=== PATIENT | male | born 1955 | race Caucasian/White ===

== ENCOUNTER 2020-08-30 20:00 | Emergency (ER) | payer OTHER, MEDICARE ==
[~2020-08-30] VITALS: Ht 172.7 cm; Wt 117.9 kg
[2020-08-30] MEDS ORDERED: ARTHRITIS MED (20:10)
[2020-08-30] MEDS ORDERED: CHOL MED PO (20:10)
[2020-08-30 21:11] LABS: HEMATOCRIT 45.8 % (42.0-52.0); HEMOGLOBIN 16.2 gm/dL (14.0-18.0); MCH 31.9 pg (26.0-34.0); MCHC 35.4 g/dL (28.0-37.0); MCV 90.1 fL (80.0-100.0); MPV 6.6 fl. (7.2-11.1); RBC 5.08 mil/uL (4.50-6.00); WBC 7.8 thou/uL (4.0-11.0)
[2020-08-30 21:18] LABS: CALCIUM 8.2 mg/dL (8.5-10.1); CREATININE 0.9 mg/dL (0.6-1.3); POTASSIUM 3.4 mmol/L (3.5-5.1)
[2020-08-30 21:23] LABS: ALBUMIN 3.7 g/dL (3.4-5.0); TOTAL BILIRUBIN 0.6 mg/dL (<0.1-1.0); TOTAL PROTEIN 7.4 g/dL (6.4-8.2)
[2020-08-30 22:26] LABS: URINE BILIRUBIN NEGATIVE (Negative); URINE BLOOD TRACE (Negative); URINE CLARITY CLEAR; URINE COLOR YELLOW; URINE GLUCOSE-RANDOM NEGATIVE (Negative); URINE KETONES NEGATIVE (Negative); URINE LEUKOCYTES-REFLEX NEGATIVE (Negative); URINE NITRITE-REFLEX NEGATIVE (Negative); URINE PROTEIN NEGATIVE (Negative)
[2020-08-30 22:34] LABS: AMP/METHAMP Negative (Negative); BARBITURATES Negative (Negative); BENZODIAZEPINES Negative (Negative); COCAINE Negative (Negative); METHADONE Negative (Negative); OPIATES Negative (Negative); PCP Negative (Negative); THC Negative (Negative)
[2020-08-30] MEDS ORDERED: ACETAMINOPHEN-1 EAC2 PO (22:58)
[2020-08-30] MEDS ORDERED: MELOXICAM15 MG PO (22:58)
[2020-08-30 23:10] VITALS: BP 152/85
== END 2020-08-30 23:11 | disposition home or self-care (01) ==
LOC: M.ERS 20:00
PROVIDERS: Personal Emergency Response Attendant
DX: M25.512 Pain in left shoulder (principal); R07.89 Other chest pain; E78.00 Pure hypercholesterolemia, unspecified; Z79.899 Other long term (current) drug therapy; V89.2XXA Person injured in unspecified motor-vehicle accident, traffic, initial encounter; Y93.89 Activity, other specified; Y92.89 Other specified places as the place of occurrence of the external cause; Y99.8 Other external cause status